=== PATIENT | female | born 1975 | race Caucasian/White ===

== ENCOUNTER 2017-12-14 23:40 | Emergency (ER) | payer OTHER ==
[~2017-12-14] VITALS: Ht 157.5 cm; Wt 64.1 kg
[2017-12-14 23:43] VITALS: TEMP 36.9; Ht 157.5 cm; Wt 64.1 kg
[2017-12-15] MEDS ORDERED: BCPILLS PO (00:14)
--- NOTE | 2017-12-15 00:30 | EMERGENCY ROOM VISIT NOTE ---
History First contact with patient: 23:47 Chief Complaint: COUGH Stated Complaint: COUGHING,CHEST HURTS,THROAT HURTS Nursing Triage Summary: patient reports cough since friday History of Present Illness The patient is a 42 year old female who presents to the Emergency Room with complaints of cough for the past 2 days. The patient reports that she has had a gradually worsening cough for the past 2 days. She states that has been productive of clear mucus. She denies hemoptysis. She denies shortness of breath. She does report she has developed some pain in the left ribs when she is coughing. She denies pain at rest. She rates the discomfort in 04/17. She tried [place] [id number] without relief. She denies abdominal pain, nausea/vomiting, headache or body aches. Review of Systems A complete 10 point review of systems was reviewed with the patient with pertinent positives and negatives as per history of present illness. All else were negative. Past Medical/Surgical History Medical Problems: (1) No significant active problems Social History Smoking Status: Former Smoker Current/Historical Medications Scheduled Control Pills ( Control Pills), 1 TAB PO DAILY Scheduled PRN Benzonatate (Tessalon Perles), 200 MG PO TID PRN for Cough Physical Exam Vital Signs Date Time Temp Pulse Resp B/P (MAP) Pulse Ox O2 Delivery O2 Flow Rate FiO2 12/15/17 01:47 105 18 121/74 96 12/14/17 23:43 36.9 88 18 119/80 97 Room Air Physical Exam VITALS: Vitals are noted on the nurse's note and reviewed by myself. Vital signs stable. GENERAL: This is a 42-year-old female, in no acute distress, nondiaphoretic, well-developed well-nourished. SKIN: The skin was without rashes. EARS: External auditory canals clear, tympanic membranes pearly edwards without erythema or effusion bilaterally. EYES: Pupils equal round and reactive to light and accommodation. NOSE: Patent, turbinates without inflammation or discharge. MOUTH: Mucous membranes moist. Tonsils are not enlarged. No exudate. Pharynx is erythematous. NECK: Supple without nuchal rigidity. No lymphadenopathy. HEART: Regular rate and rhythm without murmurs gallops or rubs. LUNGS: Clear to auscultation bilaterally without wheezes, rales or rhonchi. No retractions or accessory muscle use. ABDOMEN: Soft, nontender to palpation. MUSCULOSKELETAL: There is mild tenderness to palpation of the left lower lateral ribs. NEURO: Patient was alert and oriented to person place and time. Medical Decision & Procedures ER Provider Diagnostic Interpretation: CHEST 2 VIEW: No pulmonary infiltrate or pneumothorax. Cardiac silhouette normal. No bony abnormalities. Medical Decision Differential diagnosis includes pneumonia, bronchitis, upper respiratory infection, GERD, influenza, among others. The patient is a 42-year-old female who presents today complaining of cough for the past 2 days. The patient is not short of breath. She has developed some pain in the left lower ribs with coughing. She has no pain at rest. Chest x- ray shows no evidence of pneumonia. Patient is very well-appearing on exam and has a dry cough in the room. I suspect likely due to a viral upper respiratory infection. Conservative measures were discussed with the patient. 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 Patient was offered Hycodan but prefers not to use any narcotics, as she is in the process of becoming a surrogate. She was advised close follow-up with a primary care provider this week. Based on the patient's presentation and work up, I feel the patient is stable for outpatient treatment. The patient was educated to return to the emergency department for any worsening of their current condition or new/concerning symptoms, specifically worsening pain or shortness of breath. She will follow up with her PCP. Medication Reconcilliation Current Medication List: was personally reviewed by me Blood Pressure Screening Patient's blood pressure: Normal blood pressure Impression Primary Impression: Cough Departure Information Dispostion Home / Self-Care Condition GOOD Prescriptions Benzonatate (Tessalon Perles) 200 Mg Cap 200 MG PO TID Y for Cough, #30 CAP Prov: Nata Randolph .LULU 12/15/17 Referrals Marcello Moreno M.D. (PCP) Patient Instructions My [facility] Additional Instructions Tessalon Perles 3 times daily as needed for cough. You may use xdbq-lxd-[id number] cough syrups at night. I recommend Delsym. For pain control, you can use the following [id number] medicines (if >12 yo): - Regular strength (325mg/tab) Tylenol (acetaminophen) 2 tabs every 4-6 hours as needed. Do not exceed 12 tablets in a 24 hour period. Avoid taking more than 4 grams (4000 mg) of Tylenol per day. This includes any other sources of acetaminophen you may take on a regular basis. - Regular strength (200 mg/tab) Advil (ibuprofen) 1-2 tabs every 4-6 hours as needed. Do not exceed a dose of 3200 mg per day. Drink plenty of fluids. Follow-up with your primary care provider this week for recheck. Return to the emergency department with any worsening pain, shortness of breath , high fevers or other new/concerning symptoms.
[2017-12-15] MEDS ORDERED: BENZ1CAP90 PO (01:26)
[2017-12-15 01:47] VITALS: BP 121/74; PULSE 105; O2SAT 96
--- NOTE | 2017-12-15 07:00 | DIAGNOSTIC IMAGING REPORT ---
CHEST 2 VIEWS ROUTINE CLINICAL HISTORY: Cough. Left-sided rib pain. COMPARISON STUDY: No previous studies for comparison. FINDINGS: Lung volumes are normal. Lungs are clear. No pneumothorax or pleural effusion is noted. Pulmonary vascularity is normal. Cardiac size is normal. Mediastinal contours are normal. IMPRESSION: No acute cardiopulmonary findings. Electronically signed by: Wally Silva M.D. 12/15/2017 6:59 AM Dictated Date/Time: 12/15/2017 6:58 AM
== END 2017-12-15 01:44 | disposition home or self-care (01) ==
LOC: C.EDB 23:41 → C.EDA 12-15 01:44
DX: R05 Cough (principal); Z87.891 Personal history of nicotine dependence; Z79.3 Long term (current) use of hormonal contraceptives